=== PATIENT | female | born 1955 | race Caucasian/White ===

== ENCOUNTER 2020-02-04 14:08 | Day surgery (SDC) | payer MEDICARE ==
[2020-02-01 12:09] LABS: BASOPHILS # (AUTO) 0.03 x10^3/uL (0-0.1); BASOPHILS % (AUTO) 0 % (0-1); EOSINOPHILS % (AUTO) 1 % (1-7); LYMPHOCYTES # (AUTO) 1.55 x10^3/uL (1-3.4); LYMPHOCYTES % (AUTO) 21 % (22-44); MD NO; MEAN CORPUSCULAR HEMOGLOBIN 31.3 pg (27.0-34.8); MEAN PLATELET VOLUME 7.4 fL (7.4-10.4); MONOCYTES # (AUTO) 0.58 x10^3/uL (0.2-0.8); MONOCYTES % (AUTO) 8 % (2-9); NEUTROPHILS # (AUTO) 5.22 x10^3/uL (1.8-6.8); NEUTROPHILS % (AUTO) 70 % (42-75); PLATELET COUNT 341 x10^3/uL (130-400); RED BLOOD COUNT 3.99 x10^6/uL (3.82-5.3); RED CELL DISTRIBUTION WIDTH 13.1 % (9.6-15.2)
[2020-02-01 12:12] LABS: CHLORIDE 103 mmol/L (98-107)
[2020-02-01 12:19] LABS: ALANINE AMINOTRANSFERASE 30 U/L (12-78); ALKALINE PHOSPHATASE 92 U/L (45-117); ANION GAP 6 mmol/L (5-15); BILIRUBIN,TOTAL 0.3 mg/dL (0.2-1.0); CALCIUM 9.8 mg/dL (8.5-10.1); CREATININE 0.75 mg/dL (0.55-1.02); TOTAL PROTEIN 7.1 g/dL (6.4-8.2)
[~2020-02-04] VITALS: Ht 149.9 cm; Wt 53.0 kg
[~2020-02-04 14:08] MED LIST: ASPI81TA45 PO; CALC1CAP8 PO; CHOL10003 PO; DULO30CA2 PO; IBUP-1902 PO; LISI-167 PO; MULT-516 PO
[2020-02-04] MEDS ORDERED: CHLORHEXIDINE 15 ML UDC MM STA (14:32)
[2020-02-04] MEDS ORDERED: LACTATED RINGERS 1,000 ML IV SCH ×2 (14:33→19:00)
[2020-02-04] MEDS ORDERED: FENTANYL PF 250 MCG/5ML ONE (15:37)
[2020-02-04] MEDS ORDERED: MIDAZOLAM 1 MG/ML, 2ML ONE (15:37)
[2020-02-04] MEDS ORDERED: ACETAMINOPHEN 500 MG TABLET ONE ×2 (15:58)
[2020-02-04] MEDS ORDERED: EPINEPHRINE 1 MG/ML, 1ML ONE (16:00)
[2020-02-04] MEDS ORDERED: BACITRACIN 50,000 UNIT ONE (16:00)
[2020-02-04] MEDS ORDERED: GENTAMICIN 80 MG/2 ML ONE (16:00)
[2020-02-04] MEDS ORDERED: CEFAZOLIN 1,000 MG ONE ×2 (16:00→16:51)
[2020-02-04] MEDS ORDERED: LIDOCAINE-MPF 2% ,5ML ONE (16:00)
[2020-02-04] MEDS ORDERED: SODIUM BICARBONATE 1 MEQ/ML, 50ML VIAL ONE (16:00)
[2020-02-04] MEDS ORDERED: ROCURONIUM 10MG/ML,5ML ONE (16:28)
[2020-02-04] MEDS ORDERED: GLYCOPYRROLATE 0.2MG/1ML, 5ML ONE (16:51)
[2020-02-04] MEDS ORDERED: PROPOFOL 10 MG/ML, 20ML ONE (16:51)
[2020-02-04] MEDS ORDERED: DEXAMETHASONE 4 MG/ML, 1ML ONE (16:51)
[2020-02-04] MEDS ORDERED: NEOSTIGMINE 1 MG/ML, 10ML ONE (16:51)
[2020-02-04] MEDS ORDERED: SUCCINYLCHOLINE 20 MG/ML, 10ML ONE (16:51)
[2020-02-04] MEDS ORDERED: ONDANSETRON 2MG/ML, 2ML ONE (16:51)
[2020-02-04] MEDS ORDERED: HYDROmorphone 2 MG/ML, 1ML IVPush PRN (17:00)
[2020-02-04] MEDS ORDERED: FENTANYL PF 100 MCG/2ML IV PRN (17:00)
[2020-02-04] MEDS ORDERED: ALBUTEROL SULFATE 2.5 MG/3 ML NPPB PRN (17:00)
[2020-02-04] MEDS ORDERED: OXYcodone 5 MG/5 ML ORAL.SOL UDC PO PRN (17:00)
[2020-02-04] MEDS ORDERED: KETOROLAC 30 MG/1 ML IV PRN (17:00)
[2020-02-04] MEDS ORDERED: hydrALAzine 20 MG/ML, 1ML IV PRN (17:00)
[2020-02-04] MEDS ORDERED: DIAZEPAM 5 MG/ML, 2ML IVPush PRN (17:00)
[2020-02-04] MEDS ORDERED: MEPERIDINE/PF 25MG/0.5ML IVPush PRN (17:00)
[2020-02-04] MEDS ORDERED: ACETAMINOPHEN 325 MG TABLET PO PRN (17:00)
[2020-02-04] MEDS ORDERED: LABETALOL 5MG/ML, 20ML IV PRN (17:00)
[2020-02-04] MEDS ORDERED: PROMETHAZINE 25 MG/ML, 1ML IV PRN (17:00)
[2020-02-04] MEDS ORDERED: ONDANSETRON 2MG/ML, 2ML IVPush PRN (19:00)
[2020-02-04] MEDS ORDERED: HYDROcodone/APAP 5/325 TABLET PO PRN (19:00)
[2020-02-04] MEDS ORDERED: HYDROmorphone 2 MG/ML, 1ML IV PRN (19:00)
[2020-02-04] MEDS ORDERED: DIPHENHYDRAMINE 50 MG/ML, 1ML IVPush PRN (19:00)
[2020-02-04] MEDS ORDERED: HYDR-3240 PO (19:20)
[2020-02-04] MEDS ORDERED: CEPH-368 PO (19:21)
[2020-02-04] MEDS ORDERED: ONDA4TAB7 PO (19:21)
[2020-02-04 19:40] VITALS: BP 128/75
== END 2020-02-04 20:05 | disposition home or self-care (01) ==
LOC: SDC 14:08 → EDSTATUS 16:00 → 4NE 18:30 → SDC 20:05
PROVIDERS: ATTEND Plastic Surgery
DX: T85.49XA Other mechanical complication of breast prosthesis and implant, initial encounter (principal); Z20.828 Contact with and (suspected) exposure to other viral communicable diseases; N65.1 Disproportion of reconstructed breast; I10 Essential (primary) hypertension; Z79.82 Long term (current) use of aspirin; Z79.899 Other long term (current) drug therapy; Z85.3 Personal history of malignant neoplasm of breast; Z82.49 Family history of ischemic heart disease and other diseases of the circulatory system; Z80.8 Family history of malignant neoplasm of other organs or systems; Z98.890 Other specified postprocedural states; Y83.8 Other surgical procedures as the cause of abnormal reaction of the patient, or of later complication, without mention of misadventure at the time of the procedure
CPT/HCPCS: 15570; 15771; 15772; 19340; 19371; 36415; 80053; 85025; 87635; 93005; C1789; J0171; J0330; J0690; J1100; J1580; J2250; J2405; J2704; J2710; J3010; J7120; G0378

== ENCOUNTER → 2020-12-07 | Outpatient (CLI) | payer MEDICARE ==
[~2020-12-07] MED LIST changes: +CEPH-368 PO; +HYDR-2214 PO; +ONDA4TAB7 PO
== END | disposition home or self-care (01) ==
LOC: CFH 13:58
PROVIDERS: ATTEND Student in an Organized Health Care Education/Training Program
DX: Z12.31 Encounter for screening mammogram for malignant neoplasm of breast (principal)
CPT/HCPCS: 77063; 77067